=== PATIENT | female | born 1970 | race Two or more races ===

== ENCOUNTER 2018-05-30 07:48 | Outpatient (CLI) | payer OTHER | END 2018-05-30 08:11 | disposition home or self-care (01) | LOC: LAB 07:48 | DX: Z11.3 Encounter for screening for infections with a predominantly sexual mode of transmission (principal); Z13.220 Encounter for screening for lipoid disorders; Z13.89 Encounter for screening for other disorder; Z12.31 Encounter for screening mammogram for malignant neoplasm of breast; Z11.4 Encounter for screening for human immunodeficiency virus [HIV]; E03.8 Other specified hypothyroidism ==

== ENCOUNTER 2018-07-12 09:10 | Outpatient (CLI) | payer OTHER | END 2018-07-12 09:27 | disposition home or self-care (01) | LOC: LAB 09:10 | DX: D27.1 Benign neoplasm of left ovary (principal) ==

== ENCOUNTER 2020-09-07 09:18 | Outpatient (CLI) | payer OTHER | END 2020-09-07 09:28 | disposition home or self-care (01) | LOC: MAMO-SONO 09:18 | PROVIDERS: ATTEND Obstetrics & Gynecology Gynecology | DX: N60.11 Diffuse cystic mastopathy of right breast (principal); N60.12 Diffuse cystic mastopathy of left breast ==

== ENCOUNTER 2021-10-30 10:18 | Outpatient (CLI) | payer OTHER | END 2021-10-30 10:34 | disposition home or self-care (01) | LOC: MRI 10:18 | PROVIDERS: ATTEND Orthopaedic Surgery | DX: M25.561 Pain in right knee (principal) | CPT/HCPCS: 73718 ==

== ENCOUNTER → 2022-08-06 | Outpatient (CLI) | payer OTHER | END | disposition home or self-care (01) | LOC: MAMO-SONO 11:26 | PROVIDERS: ATTEND Obstetrics & Gynecology Gynecology | DX: N60.11 Diffuse cystic mastopathy of right breast (principal); N60.12 Diffuse cystic mastopathy of left breast ==

== ENCOUNTER 2025-01-25 12:50 | Outpatient (CLI) | payer OTHER | END 2025-01-25 13:06 | disposition home or self-care (01) | LOC: MAMO-SONO 12:50 | PROVIDERS: ATTEND Obstetrics & Gynecology Gynecology | DX: N60.11 Diffuse cystic mastopathy of right breast (principal); N60.12 Diffuse cystic mastopathy of left breast ==